=== PATIENT | female | born 1965 | race African-American/Black ===

== ENCOUNTER 2019-06-28 23:36 | Emergency (ER) | payer OTHER ==
[~2019-06-28] VITALS: Ht 170.2 cm; Wt 77.0 kg
[~2019-06-28 23:36] MED LIST: ATOR20TA PO; Aspirin PO; Metoprolol Tartrate PO
[2019-06-29] MEDS ORDERED: IBUPROFEN 800MG TABLET PO ONE (00:45)
[2019-06-29] MEDS ORDERED: ACETAMINOPHEN 500MG TABLET PO ONE (00:45)
[2019-06-29 01:42] VITALS: BP 120/84
== END 2019-06-29 01:44 | disposition home or self-care (01) ==
LOC: ER 23:36
DX: S82.492A Other fracture of shaft of left fibula, initial encounter for closed fracture (principal); I10 Essential (primary) hypertension; Z79.82 Long term (current) use of aspirin; Z79.899 Other long term (current) drug therapy; X58.XXXA Exposure to other specified factors, initial encounter; Y93.89 Activity, other specified; Y92.89 Other specified places as the place of occurrence of the external cause; Y99.8 Other external cause status
CPT/HCPCS: 29505; 99283